=== PATIENT | female | born 1960 | race Caucasian/White ===

== ENCOUNTER 2023-03-22 00:54 | Emergency (ER) | payer BC, MEDICAID ==
[~2023-03-22] VITALS: Ht 167.6 cm; Wt 113.4 kg
--- NOTE | 2023-03-22 01:00 | NUR ---
Patient to ER bed 08 to gown for evaluation. Side rails up. Report given to JACQUE BECERRA.
[2023-03-22 01:01] VITALS: BP_SYST 148
[2023-03-22] MEDS ORDERED: ASPIRIN 81 MG TAB.CHEW PO ONE (01:15)
--- NOTE | 2023-03-22 01:15 | NUR ---
Dr. JOHNS at bedside examining the patient.
[2023-03-22 01:44] LABS: BASOPHILS % (AUTO) 0.5 % (0.0-2.0); EOSINOPHILS # (AUTO) 0.2 K/uL (0.0-0.4); EOSINOPHILS % (AUTO) 3.5 % (0.0-4.0); HEMATOCRIT 39.3 % (36-48); HEMOGLOBIN 13.2 g/dL (12.0-16.0); LYMPHOCYTES # (AUTO) 2.7 K/uL (1.0-5.5); LYMPHOCYTES % (AUTO) 40.8 % (20.5-51.5); MEAN CORPUSCULAR HEMOGLOBIN 31 pg (27-31); MEAN CORPUSCULAR HGB CONC 34 % (32-36); MEAN CORPUSCULAR VOLUME 91 fL (79.0-98.0); MONOCYTES # (AUTO) 0.6 K/uL (0.0-1.0); MONOCYTES % (AUTO) 8.4 % (1.7-9.3); NEUTROPHILS # (AUTO) 3.1 K/uL (1.8-7.7); NEUTROPHILS % (AUTO) 46.8 % (40.0-70.0); PLATELET COUNT (AUTO) 207 K/uL (130-430); RED CELL DISTRIBUTION WIDTH 14.3 % (9.0-15.0); WHITE BLOOD COUNT (AUTO) 6.6 K/uL (4.8-10.8)
[2023-03-22 02:21] LABS: ALANINE AMINOTRANSFERASE 64 U/L (12-78); ALBUMIN 3.7 g/dL (3.4-4.8); ANION GAP 8 (5-15); ASPARTATE AMINOTRANSFERASE 37 U/L (10-37); CALCIUM 8.7 mg/dL (8.4-11.0); CHLORIDE 105 mmol/L (98-107); CREATININE 0.67 mg/dL (0.55-1.30); GFR AFRICAN AMERICAN 114 mL/min (>90); GLUCOSE 106 mg/dL (70-99); TOTAL BILIRUBIN 0.3 mg/dL (0.0-1.0); UREA NITROGEN, BLOOD 18 mg/dL (8-21)
--- NOTE | 2023-03-22 02:44 | NUR ---
PATENT COUNSEL AT BEDSIDE.
[2023-03-22] MEDS ORDERED: KETOROLAC TROMETHAMINE 30 MG VIAL IM ONE (03:45)
[2023-03-22] MEDS ORDERED: CEPH-548 PO (03:47)
[2023-03-22] MEDS ORDERED: IBUP-1969 PO (03:47)
[2023-03-22 04:00] VITALS: BP_SYST 134
--- NOTE | 2023-03-22 04:00 | NUR ---
Patient given written and verbal discharge instructions and verbalizes understanding. ER DR. JOHNS discussed with patient the results and treatment provided. Patient in stable condition. ID arm band removed. IV catheter removed intact and dressing applied, no active bleeding. Rx of IBUPROFEN AND CEPHALEXIN given. Patient educated on pain management and to follow up with PMD. Pain Scale 0. Opportunity for questions provided and answered. Medication side effect fact sheet provided.
== END 2023-03-22 04:00 | disposition home or self-care (01) ==
LOC: SED 00:54
DX: R07.89 Other chest pain (principal); F43.9 Reaction to severe stress, unspecified; Z88.5 Allergy status to narcotic agent; Z79.899 Other long term (current) drug therapy
CPT/HCPCS: 99285; 71045; 80053; 85025; 84484; 36415; 93005; 96372; J1885

== ENCOUNTER 2024-06-16 22:32 | Emergency (ER) | payer BC ==
[~2024-06-16] VITALS: Ht 167.6 cm; Wt 117.5 kg
[~2024-06-16 22:32] MED LIST: CEPH-548 PO; IBUP-1969 PO
[2024-06-16 22:50] VITALS: BP_SYST 146; PULSE 72; RESP 20; TEMP 97.7; O2SAT 95
[2024-06-16] MEDS: PROCHLORPERAZINE EDISYLATE 10 MG/2 ML VIAL IM ONE (23:52)
[2024-06-16] MEDS: KETOROLAC TROMETHAMINE 60 MG/2 ML VIAL IM ONE (23:59)
[2024-06-17 00:26] LABS: EOSINOPHILS # (AUTO) 0.2 K/uL (0.0-0.4); MEAN CORPUSCULAR HEMOGLOBIN 32 pg (27-31); RED CELL DISTRIBUTION WIDTH 14.2 % (9.0-15.0)
[2024-06-17 00:38] LABS: BASOPHILS % (AUTO) 0.4 % (0.0-2.0); EOSINOPHILS % (AUTO) 2.4 % (0.0-4.0); HEMOGLOBIN 13.6 g/dL (12.0-16.0); LYMPHOCYTES # (AUTO) 3.1 K/uL (1.0-5.5); LYMPHOCYTES % (AUTO) 43.7 % (20.5-51.5); MEAN CORPUSCULAR HGB CONC 34 % (32-36); MEAN CORPUSCULAR VOLUME 93 fL (79.0-98.0); MONOCYTES # (AUTO) 0.4 K/uL (0.0-1.0); MONOCYTES % (AUTO) 5.5 % (1.7-9.3); NEUTROPHILS # (AUTO) 3.4 K/uL (1.8-7.7); PLATELET COUNT (AUTO) 226 K/uL (130-430); RED BLOOD CELL COUNT(AUTO) 4.29 MIL/uL (4.2-6.2)
[2024-06-17 00:47] LABS: ALBUMIN 3.7 g/dL (3.4-4.8); CALCIUM 9.2 mg/dL (8.4-11.0); CREATININE 0.85 mg/dL (0.55-1.30); POTASSIUM 3.8 mmol/L (3.5-5.1); TOTAL BILIRUBIN 0.3 mg/dL (0.0-1.0); TOTAL PROTEIN, SERUM 7.6 g/dL (6.4-8.3)
[2024-06-17] MEDS ORDERED: ONDA-8 TL (00:53)
[2024-06-17] MEDS ORDERED: MECL-292 PO (00:53)
[2024-06-17 01:03] VITALS: BP_SYST 146; PULSE 72; RESP 20; TEMP 97.7; O2SAT 95
== END 2024-06-17 01:03 | disposition home or self-care (01) ==
LOC: SED 22:32
DX: K29.00 Acute gastritis without bleeding (principal); R11.0 Nausea; Z88.5 Allergy status to narcotic agent; Z79.899 Other long term (current) drug therapy; Z79.2 Long term (current) use of antibiotics
CPT/HCPCS: 99284; 80053; 83690; 85025; 36415; 96372; J1885; J0780